=== PATIENT | female | born 1990 | race Caucasian/White ===

== ENCOUNTER 2018-03-07 01:27 | Inpatient (IN) | END 2018-03-09 16:19 | disposition home or self-care (01) | DRG 419 ==

== ENCOUNTER 2018-06-25 14:16 | Emergency (ER) | payer OTHER ==
[~2018-06-25] VITALS: Wt 89.0 kg
[~2018-06-25 14:16] MED LIST: HYDR-3601 PO
[2018-06-25 14:21] VITALS: BP 142/80; PULSE 80; RESP 18
--- NOTE | 2018-06-25 15:45 | ERD ---
ER Documentation Chief Complaint Chief Complaint leg swelling, 9 weeks from clinic HPI 28-year-old female presenting with complaints of right-sided leg swelling. She states she noticed over the last 2 days that occasionally during the evening her right leg swells. She denies any calf tenderness. She occasionally has some shortness of breath but denies any pleuritic chest pain. Has not taken medications for symptoms. Patient is currently 9 weeks . Denies any medical problems. NKDA. Surgical history denies. Social history denies ROS All systems reviewed and are negative except as per history of present illness. Medications Home Meds Active Scripts Hydrocodone Bit-Acetaminophen (Hydrocodone Bit-APAP) 5-325MG Tablet, 1 TAB PO Q6H PRN for PAIN LEVEL 4-6 for 7 Days, #20 TAB Prov:MARINE PRESTON MD 03/09/18 Allergies Allergies: Coded Allergies: ketorolac (Verified Allergy, Mild, 03/07/18) PMhx/Soc History of Surgery: No Hx Neurological Disorder: No Hx Respiratory Disorders: No Hx Cardiac Disorders: No Hx Psychiatric Problems: No Hx Miscellaneous Medical Probl: No Hx Alcohol Use: No Hx Substance Use: No Hx Tobacco Use: No Smoking Status: Never smoker FmHx Family History: No diabetes, No coronary disease, No other Physical Exam Vitals Vital Signs Date Temp Pulse Resp B/P (MAP) Pulse Ox O2 O2 Flow FiO2 Time Delivery Rate 06/25/18 97.8 80 18 142/80 99 14:21 (100) Physical Exam GENERAL: The patient is well-appearing, well-nourished, in no acute distress CHEST: Clear to auscultation bilaterally. There are no rales, wheezes or rhonchi. HEART: Regular rate and rhythm. No murmurs, clicks, rubs or gallops. No S3 or S4. EXTREMITIES: Equal pulses bilaterally. There is no peripheral clubbing, cyanosis or edema. No focal swelling or erythema. Full range of motion. NEUROLOGIC: Alert and oriented. Cranial nerves II through XII intact. Motor strength in all 4 extremities with 5 out of 5 strength. Sensation grossly intact. SKIN: No swelling or tenderness to the right calf. No erythema. Pulses intact. Compartments soft Procedures/MDM DIAGNOSTIC IMAGING REPORT Patient: BERNICE MONTAGUE : 1990 Age: 28 Sex: F MR #: [id number] DOS: 06/25/18 1503 Ordering MD: ROSSY HIDALGO PA-C Location: [facility] Room/Bed: PROCEDURE: US Lower extremity Venous. CLINICAL INDICATION: Right leg pain TECHNIQUE: Multiple sonographic images of the right lower extremity deep venous system was obtained utilizing grayscale, color-flow, compressive sonography and doppler imaging with augmentation. The images were reviewed on a PACS workstation. COMPARISON: None. FINDINGS: There is normal compressibility and flow within the right common femoral, deep femoral, superficial femoral, posterior tibial, peroneal and popliteal veins. IMPRESSION: No sonographic evidence for deep venous thrombosis. MDM: 8-year-old female presenting with intermittent swelling of the right lower leg. I have low suspicion for DVT or vascular insufficiency. I have low suspicion for infectious etiology. I have low suspicion for PE. Patient is not tachycardic and does not have pleuritic chest pain on exam. Patient had some mild wheezing and shortness of breath is resolved with albuterol at home. I have low suspicion for pneumonia. Patient is discharged with recommendations of following up with her [employer] AND [employer] INSTRUCTOR. Patient is told if symptoms change or worsen to return immediately to the ER. All questions answered at discharge Departure Diagnosis: Primary Impression: Swelling Condition: Stable Patient Instructions: Peripheral Edema, Unilateral Referrals: [facility] (PCP) Additional Instructions: FOLLOW UP WITH YOUR PRIMARY CARE PHYSICIAN TOMORROW.Return to this facility if you are not improving as expected. JOYS HIDALGO PA-C Jun 25, 2018 15:45
== END 2018-06-25 16:08 | disposition home or self-care (01) ==
LOC: FTE 14:16
DX: O99.89 Other specified diseases and conditions complicating pregnancy, childbirth and the puerperium (principal); R22.41 Localized swelling, mass and lump, right lower limb; Z3A.09 9 weeks gestation of pregnancy
CPT/HCPCS: 93971; Z7502